=== PATIENT | female | born 1945 | race Hispanic/Latino ===

== ENCOUNTER 2019-04-13 14:04 | Emergency (ER) | payer OTHER ==
[~2019-04-13] VITALS: Ht 162.6 cm; Wt 68.0 kg
[2019-04-13 15:05] LABS: PLATELET COUNT 268 K/uL (152-353)
[2019-04-13 15:16] LABS: POTASSIUM 4.2 mmol/L (3.6-5.2); SODIUM 136 mmol/L (136-145)
[2019-04-13 15:33] LABS: PARTIAL THROMBOPLASTIN TIME 24.4 SECONDS (24.5-33.6)
[2019-04-13 16:25] VITALS: BP 128/53; TEMP 98
== END 2019-04-13 16:25 | disposition home or self-care (01) ==
LOC: ED 14:04
PROVIDERS: Hospitalist
DX: F41.1 Generalized anxiety disorder (principal); I10 Essential (primary) hypertension; E07.89 Other specified disorders of thyroid; R06.02 Shortness of breath
CPT/HCPCS: 80053; 81000; 82550; 82553; 83880; 84484; 85027; 85610; 85730; 93005; 99283

== ENCOUNTER 2020-12-06 07:24 | Outpatient (CLI) | payer OTHER ==
[2020-12-06 07:55] LABS: PLATELET COUNT 256 K/uL (152-353)
[2020-12-06 08:18] LABS: POTASSIUM 4.2 mmol/L (3.6-5.2)
== END 2020-12-06 21:08 | disposition home or self-care (01) ==
LOC: LABW 07:24
PROVIDERS: ATTEND Internal Medicine Endocrinology, Diabetes & Metabolism
DX: E11.65 Type 2 diabetes mellitus with hyperglycemia (principal); E55.9 Vitamin D deficiency, unspecified; E53.8 Deficiency of other specified B group vitamins
CPT/HCPCS: 36415; 80053; 80061; 81000; 82306; 82607; 83036; 85027

== ENCOUNTER 2020-12-09 07:50 | Outpatient (CLI) | payer OTHER ==
[~2020-12-09] VITALS: Ht 162.6 cm; Wt 68.9 kg
== END 2020-12-09 19:16 | disposition home or self-care (01) ==
LOC: DIABINF 07:50
PROVIDERS: ATTEND Internal Medicine Endocrinology, Diabetes & Metabolism
DX: E11.65 Type 2 diabetes mellitus with hyperglycemia (principal); Z79.4 Long term (current) use of insulin; I10 Essential (primary) hypertension; E03.9 Hypothyroidism, unspecified; K21.9 Gastro-esophageal reflux disease without esophagitis; F41.9 Anxiety disorder, unspecified; F32.89 Other specified depressive episodes
CPT/HCPCS: 82948; 96365; 96366; 96521; 99204; J1718; J1815

== ENCOUNTER 2020-12-10 07:37 | Outpatient (CLI) | payer OTHER ==
[~2020-12-10] VITALS: Ht 162.6 cm; Wt 68.9 kg
== END 2020-12-10 19:10 | disposition home or self-care (01) ==
LOC: DIABINF 07:37
PROVIDERS: ATTEND Internal Medicine Endocrinology, Diabetes & Metabolism
DX: E11.65 Type 2 diabetes mellitus with hyperglycemia (principal); Z79.4 Long term (current) use of insulin; I10 Essential (primary) hypertension; E03.9 Hypothyroidism, unspecified; K21.9 Gastro-esophageal reflux disease without esophagitis; F41.9 Anxiety disorder, unspecified; F32.89 Other specified depressive episodes
CPT/HCPCS: 82948; 96365; 96366; 96521; 99214; J1718; J1815

== ENCOUNTER 2020-12-16 07:51 | Outpatient (CLI) | payer OTHER ==
[~2020-12-16] VITALS: Ht 162.6 cm; Wt 68.9 kg
== END 2020-12-16 22:08 | disposition home or self-care (01) ==
LOC: DIABINF 07:51
PROVIDERS: ATTEND Internal Medicine Endocrinology, Diabetes & Metabolism
DX: E11.65 Type 2 diabetes mellitus with hyperglycemia (principal); Z79.4 Long term (current) use of insulin; I10 Essential (primary) hypertension; E03.9 Hypothyroidism, unspecified; K21.9 Gastro-esophageal reflux disease without esophagitis; F41.9 Anxiety disorder, unspecified; F32.89 Other specified depressive episodes
CPT/HCPCS: 82948; 96365; 96366; 96521; 99213; J1718; J1815

== ENCOUNTER 2020-12-17 07:42 | Outpatient (CLI) | payer OTHER ==
[~2020-12-17] VITALS: Ht 162.6 cm; Wt 68.9 kg
== END 2020-12-17 20:40 | disposition home or self-care (01) ==
LOC: DIABINF 07:42
PROVIDERS: ATTEND Internal Medicine Endocrinology, Diabetes & Metabolism
DX: E11.65 Type 2 diabetes mellitus with hyperglycemia (principal); Z79.4 Long term (current) use of insulin; I10 Essential (primary) hypertension; E03.9 Hypothyroidism, unspecified; K21.9 Gastro-esophageal reflux disease without esophagitis; F41.9 Anxiety disorder, unspecified; F32.89 Other specified depressive episodes
CPT/HCPCS: 82948; 96365; 96366; 96521; 99214; J1718; J1815

== ENCOUNTER 2020-12-23 07:53 | Outpatient (CLI) | payer OTHER ==
[~2020-12-23] VITALS: Ht 162.6 cm; Wt 68.9 kg
== END 2020-12-23 19:38 | disposition home or self-care (01) ==
LOC: DIABINF 07:53
PROVIDERS: ATTEND Internal Medicine Endocrinology, Diabetes & Metabolism
DX: E11.65 Type 2 diabetes mellitus with hyperglycemia (principal); Z79.4 Long term (current) use of insulin; I10 Essential (primary) hypertension; E03.9 Hypothyroidism, unspecified; K21.9 Gastro-esophageal reflux disease without esophagitis; F41.9 Anxiety disorder, unspecified; F32.89 Other specified depressive episodes
CPT/HCPCS: 82948; 96365; 96366; 96521; 99215; J1718; J1815

== ENCOUNTER 2020-12-24 07:38 | Outpatient (CLI) | payer OTHER ==
[~2020-12-24] VITALS: Ht 162.6 cm; Wt 68.9 kg
== END 2020-12-24 21:38 | disposition home or self-care (01) ==
LOC: DIABINF 07:38
PROVIDERS: ATTEND Internal Medicine Endocrinology, Diabetes & Metabolism
DX: E11.65 Type 2 diabetes mellitus with hyperglycemia (principal); Z79.4 Long term (current) use of insulin; I10 Essential (primary) hypertension; E03.8 Other specified hypothyroidism; K21.9 Gastro-esophageal reflux disease without esophagitis; F41.1 Generalized anxiety disorder; F32.9 Major depressive disorder, single episode, unspecified
CPT/HCPCS: 82948; 96365; 96366; 96521; 99214; J1718; J1815

== ENCOUNTER 2020-12-30 07:40 | Outpatient (CLI) | payer OTHER ==
[~2020-12-30] VITALS: Ht 162.6 cm; Wt 68.9 kg
== END 2020-12-30 21:32 | disposition home or self-care (01) ==
LOC: DIABINF 07:40
PROVIDERS: ATTEND Internal Medicine Endocrinology, Diabetes & Metabolism
DX: E11.65 Type 2 diabetes mellitus with hyperglycemia (principal); Z79.4 Long term (current) use of insulin; I10 Essential (primary) hypertension; E03.8 Other specified hypothyroidism; K21.9 Gastro-esophageal reflux disease without esophagitis; F41.1 Generalized anxiety disorder; F33.9 Major depressive disorder, recurrent, unspecified
CPT/HCPCS: 82948; 96365; 96366; 96521; 99214; J1718; J1815

== ENCOUNTER 2021-01-06 07:51 | Outpatient (CLI) | payer OTHER ==
[~2021-01-06] VITALS: Ht 162.6 cm; Wt 68.9 kg
== END 2021-01-06 19:16 | disposition home or self-care (01) ==
LOC: DIABINF 07:51
PROVIDERS: ATTEND Internal Medicine Endocrinology, Diabetes & Metabolism
DX: E11.65 Type 2 diabetes mellitus with hyperglycemia (principal); Z79.4 Long term (current) use of insulin; I10 Essential (primary) hypertension; E03.8 Other specified hypothyroidism; K21.9 Gastro-esophageal reflux disease without esophagitis; F41.1 Generalized anxiety disorder; F33.9 Major depressive disorder, recurrent, unspecified
CPT/HCPCS: 82948; 96365; 96366; 96521; 99214; J1718; J1815

== ENCOUNTER 2021-01-13 08:01 | Outpatient (CLI) | payer OTHER ==
[~2021-01-13] VITALS: Ht 162.6 cm; Wt 68.9 kg
== END 2021-01-13 19:08 | disposition home or self-care (01) ==
LOC: DIABINF 08:01
PROVIDERS: ATTEND Internal Medicine Endocrinology, Diabetes & Metabolism
DX: E11.65 Type 2 diabetes mellitus with hyperglycemia (principal); Z79.4 Long term (current) use of insulin; I10 Essential (primary) hypertension; E03.8 Other specified hypothyroidism; K21.9 Gastro-esophageal reflux disease without esophagitis; F41.1 Generalized anxiety disorder; F33.9 Major depressive disorder, recurrent, unspecified
CPT/HCPCS: 82948; 96365; 96366; 96521; 99214; J1718; J1815

== ENCOUNTER 2021-01-20 07:36 | Outpatient (CLI) | payer OTHER ==
[~2021-01-20] VITALS: Ht 162.6 cm; Wt 68.9 kg
== END 2021-01-20 19:39 | disposition home or self-care (01) ==
LOC: DIABINF 07:36
PROVIDERS: ATTEND Internal Medicine Endocrinology, Diabetes & Metabolism
DX: E11.65 Type 2 diabetes mellitus with hyperglycemia (principal); Z79.4 Long term (current) use of insulin; I10 Essential (primary) hypertension; E03.8 Other specified hypothyroidism; K21.9 Gastro-esophageal reflux disease without esophagitis; F41.1 Generalized anxiety disorder; F33.9 Major depressive disorder, recurrent, unspecified; S51.802A Unspecified open wound of left forearm, initial encounter; Z98.890 Other specified postprocedural states
CPT/HCPCS: 82948; 96365; 96366; 96521; 99214; J1718; J1815

== ENCOUNTER 2021-01-27 07:37 | Outpatient (CLI) | payer OTHER ==
[~2021-01-27] VITALS: Ht 162.6 cm; Wt 68.9 kg
== END 2021-01-27 19:22 | disposition home or self-care (01) ==
LOC: DIABINF 07:37
PROVIDERS: ATTEND Internal Medicine Endocrinology, Diabetes & Metabolism
DX: E11.65 Type 2 diabetes mellitus with hyperglycemia (principal); Z79.4 Long term (current) use of insulin; I10 Essential (primary) hypertension; E03.8 Other specified hypothyroidism; K21.9 Gastro-esophageal reflux disease without esophagitis; F41.1 Generalized anxiety disorder; F33.9 Major depressive disorder, recurrent, unspecified; S51.802A Unspecified open wound of left forearm, initial encounter
CPT/HCPCS: 82948; 96365; 96366; 96521; 99214; J1718; J1815

== ENCOUNTER 2021-02-03 07:41 | Outpatient (CLI) | payer OTHER ==
[~2021-02-03] VITALS: Ht 121.9 cm; Wt 68.9 kg
== END 2021-02-03 19:11 | disposition home or self-care (01) ==
LOC: DIABINF 07:41
PROVIDERS: ATTEND Internal Medicine Endocrinology, Diabetes & Metabolism
DX: E11.65 Type 2 diabetes mellitus with hyperglycemia (principal); Z79.4 Long term (current) use of insulin; I10 Essential (primary) hypertension; E03.8 Other specified hypothyroidism; K21.9 Gastro-esophageal reflux disease without esophagitis; F41.1 Generalized anxiety disorder; F33.9 Major depressive disorder, recurrent, unspecified; S51.802A Unspecified open wound of left forearm, initial encounter
CPT/HCPCS: 82948; 96365; 96366; 96521; 99214; J1718; J1815

== ENCOUNTER 2021-02-10 07:43 | Outpatient (CLI) | payer OTHER ==
[~2021-02-10] VITALS: Ht 162.6 cm; Wt 68.9 kg
== END 2021-02-10 21:24 | disposition home or self-care (01) ==
LOC: DIABINF 07:43
PROVIDERS: ATTEND Nurse Practitioner
DX: E11.65 Type 2 diabetes mellitus with hyperglycemia (principal); Z79.4 Long term (current) use of insulin; I10 Essential (primary) hypertension; E03.8 Other specified hypothyroidism; K21.9 Gastro-esophageal reflux disease without esophagitis; F41.1 Generalized anxiety disorder; F33.9 Major depressive disorder, recurrent, unspecified; S51.802A Unspecified open wound of left forearm, initial encounter
CPT/HCPCS: 82948; 96365; 96366; 96521; J1815; J1817

== ENCOUNTER 2021-02-17 07:46 | Outpatient (CLI) | payer OTHER ==
[~2021-02-17] VITALS: Ht 162.6 cm; Wt 68.9 kg
== END 2021-02-17 19:51 | disposition home or self-care (01) ==
LOC: DIABINF 07:46
PROVIDERS: ATTEND Nurse Practitioner
DX: E11.65 Type 2 diabetes mellitus with hyperglycemia (principal); Z79.4 Long term (current) use of insulin; I10 Essential (primary) hypertension; E03.8 Other specified hypothyroidism; K21.9 Gastro-esophageal reflux disease without esophagitis; F41.1 Generalized anxiety disorder; F33.0 Major depressive disorder, recurrent, mild; S51.802D Unspecified open wound of left forearm, subsequent encounter
CPT/HCPCS: 82948; 96365; 96366; 96521; J1815; J1817

== ENCOUNTER 2021-02-24 07:41 | Outpatient (CLI) | payer OTHER ==
[~2021-02-24] VITALS: Ht 162.6 cm; Wt 68.9 kg
== END 2021-02-24 20:54 | disposition home or self-care (01) ==
LOC: DIABINF 07:41
PROVIDERS: ATTEND Internal Medicine Endocrinology, Diabetes & Metabolism
DX: E11.65 Type 2 diabetes mellitus with hyperglycemia (principal); Z79.4 Long term (current) use of insulin; I10 Essential (primary) hypertension; E03.8 Other specified hypothyroidism; K21.9 Gastro-esophageal reflux disease without esophagitis; F41.1 Generalized anxiety disorder; F33.0 Major depressive disorder, recurrent, mild; S51.802D Unspecified open wound of left forearm, subsequent encounter
CPT/HCPCS: 82948; 96365; 96366; 96521; J1815; J1817

== ENCOUNTER 2021-03-10 08:22 | Outpatient (CLI) | payer OTHER ==
[~2021-03-10] VITALS: Ht 162.6 cm; Wt 68.9 kg
== END 2021-03-10 21:44 | disposition home or self-care (01) ==
LOC: DIABINF 08:22
PROVIDERS: ATTEND Internal Medicine Endocrinology, Diabetes & Metabolism
DX: E11.65 Type 2 diabetes mellitus with hyperglycemia (principal); Z79.4 Long term (current) use of insulin; I10 Essential (primary) hypertension; E03.8 Other specified hypothyroidism; K21.9 Gastro-esophageal reflux disease without esophagitis; F41.1 Generalized anxiety disorder; F33.0 Major depressive disorder, recurrent, mild
CPT/HCPCS: 82948; 96365; 96366; 96521; J1815; J1817

== ENCOUNTER 2021-03-24 07:38 | Outpatient (CLI) | payer OTHER ==
[~2021-03-24] VITALS: Ht 162.6 cm; Wt 68.9 kg
== END 2021-03-24 11:30 | disposition home or self-care (01) ==
LOC: DIABINF 07:38
PROVIDERS: ATTEND Internal Medicine Endocrinology, Diabetes & Metabolism
DX: E11.65 Type 2 diabetes mellitus with hyperglycemia (principal); Z79.4 Long term (current) use of insulin; I10 Essential (primary) hypertension; E03.8 Other specified hypothyroidism; K21.9 Gastro-esophageal reflux disease without esophagitis; F41.1 Generalized anxiety disorder; F33.0 Major depressive disorder, recurrent, mild
CPT/HCPCS: 82948; 96365; 96366; 96521; J1815; J1817

== ENCOUNTER 2021-04-08 07:40 | Outpatient (CLI) | payer OTHER ==
[~2021-04-08] VITALS: Ht 162.6 cm; Wt 68.9 kg
== END 2021-04-08 19:07 | disposition home or self-care (01) ==
LOC: DIABINF 07:40
PROVIDERS: ATTEND Nurse Practitioner
DX: E11.65 Type 2 diabetes mellitus with hyperglycemia (principal); Z79.4 Long term (current) use of insulin; I10 Essential (primary) hypertension; E03.8 Other specified hypothyroidism; K21.9 Gastro-esophageal reflux disease without esophagitis; F41.1 Generalized anxiety disorder; F33.0 Major depressive disorder, recurrent, mild
CPT/HCPCS: 82948; 96365; 96366; 96521; J1815; J1817

== ENCOUNTER 2021-04-21 07:35 | Outpatient (CLI) | payer OTHER ==
[~2021-04-21] VITALS: Ht 162.6 cm; Wt 68.9 kg
== END 2021-04-21 19:13 | disposition home or self-care (01) ==
LOC: DIABINF 07:35
PROVIDERS: ATTEND Nurse Practitioner
DX: E11.65 Type 2 diabetes mellitus with hyperglycemia (principal); Z79.4 Long term (current) use of insulin; I10 Essential (primary) hypertension; E03.8 Other specified hypothyroidism; K21.9 Gastro-esophageal reflux disease without esophagitis; F41.1 Generalized anxiety disorder; F33.0 Major depressive disorder, recurrent, mild
CPT/HCPCS: 82948; 96365; 96366; 96521; J1815; J1817

== ENCOUNTER 2021-05-05 07:43 | Outpatient (CLI) | payer OTHER ==
[~2021-05-05] VITALS: Ht 162.6 cm; Wt 68.9 kg
== END 2021-05-05 22:34 | disposition home or self-care (01) ==
LOC: DIABINF 07:43
PROVIDERS: ATTEND Nurse Practitioner
DX: E11.65 Type 2 diabetes mellitus with hyperglycemia (principal); Z79.4 Long term (current) use of insulin; I10 Essential (primary) hypertension; E03.8 Other specified hypothyroidism; K21.9 Gastro-esophageal reflux disease without esophagitis; F41.1 Generalized anxiety disorder; F33.0 Major depressive disorder, recurrent, mild
CPT/HCPCS: 82948; 96365; 96366; 96521; J1815; J1817

== ENCOUNTER 2021-05-19 07:50 | Outpatient (CLI) | payer OTHER ==
[~2021-05-19] VITALS: Ht 162.6 cm; Wt 68.9 kg
== END 2021-05-19 19:06 | disposition home or self-care (01) ==
LOC: DIABINF 07:50
PROVIDERS: ATTEND Nurse Practitioner
DX: E11.65 Type 2 diabetes mellitus with hyperglycemia (principal); Z79.4 Long term (current) use of insulin; I10 Essential (primary) hypertension; E03.8 Other specified hypothyroidism; K21.9 Gastro-esophageal reflux disease without esophagitis; F41.1 Generalized anxiety disorder; F33.0 Major depressive disorder, recurrent, mild
CPT/HCPCS: 82948; 96365; 96366; 96521; J1815; J1817

== ENCOUNTER 2021-06-02 07:58 | Outpatient (CLI) | payer OTHER ==
[~2021-06-02] VITALS: Ht 162.6 cm; Wt 68.9 kg
== END 2021-06-02 19:19 | disposition home or self-care (01) ==
LOC: DIABINF 07:58
PROVIDERS: ATTEND Nurse Practitioner
DX: E11.65 Type 2 diabetes mellitus with hyperglycemia (principal); I10 Essential (primary) hypertension; K21.9 Gastro-esophageal reflux disease without esophagitis; F41.1 Generalized anxiety disorder; E03.8 Other specified hypothyroidism
CPT/HCPCS: 82948; 96365; 96366; 96521; J1815; J1817

== ENCOUNTER 2022-03-30 11:01 | Emergency (ER) | payer OTHER ==
[~2022-03-30] VITALS: Ht 162.6 cm; Wt 68.9 kg
[2022-03-30 11:01] VITALS: TEMP 98
[2022-03-30 11:47] LABS: PLATELET COUNT 224 K/uL (152-353)
[2022-03-30 14:00] VITALS: BP 127/49
== END 2022-03-30 14:10 | disposition home or self-care (01) ==
LOC: ED 11:01
PROVIDERS: Emergency Medicine Emergency Medical Services
DX: S70.02XA Contusion of left hip, initial encounter (principal); W01.0XXA Fall on same level from slipping, tripping and stumbling without subsequent striking against object, initial encounter; Y93.H1 Activity, digging, shoveling and raking; Y92.096 Garden or yard of other non-institutional residence as the place of occurrence of the external cause
CPT/HCPCS: 36415; 80048; 85027; 96360; 96361; 96374; 96375; 99284; J2270; J2405